=== PATIENT | female | born 1980 | race Caucasian/White ===

== ENCOUNTER 2016-07-30 20:55 | Emergency (ER) | payer MEDICAID, OTHER ==
[~2016-07-30] VITALS: Ht 167.6 cm; Wt 65.5 kg
[2016-07-30 21:03] VITALS: Ht 167.6 cm; Wt 65.5 kg
--- NOTE | 2016-07-30 22:34 | ERD ---
ER Documentation Chief Complaint Date/Time DATE: 07/30/16 TIME: 22:31 Chief Complaint Vaginal bleed for 10 days HPI 35-year-old female presents to emergency department for complaints of vaginal bleeding for 10 days. Patient states that she has been bleeding more than the usual, last menstruation was 06/26/2016. Patient is 1 para 1 0. Patient is complaining of pelvic pain, cramping pain, 4/10 scale, is accompanying the vaginal bleeding. Patient denies hematuria or dysuria. Patient denies any flank pain. Patient denies any fever or chills. Patient denies any dizziness. Patient soaks 6 pads per day. ROS All systems reviewed and are negative except as per history of present illness. Medications Home Meds Active Scripts Docusate Sodium* (Colace*) 100 Mg Capsule, 100 MG PO TID, #30 CAP Prov:KISHORE MACEDO [employer] 07/31/16 Ferrous Sulfate* (Ferrous Sulfate*) 325 Mg Tabec, 325 MG PO BID, #20 TAB Prov:KISHORE MACEDO [employer] 07/31/16 Ibuprofen* (Motrin*) 600 Mg Tab, 600 MG PO Q6H Y for PAIN AND OR ELEVATED TEMP, #30 TAB Prov:KISHORE MACEDO [employer]OCIATE 07/31/16 Reported Medications [none] Unknown Strength No Conflict Check 07/30/16 Allergies Allergies: Coded Allergies: No Known Allergy (Unverified , 07/30/16) PMhx/Soc Medical and Surgical Hx: pt denies Medical Hx, pt denies Surgical Hx Hx Alcohol Use: No Hx Substance Use: No Hx Tobacco Use: No FmHx Family History: No coronary disease, No diabetes, No other Physical Exam Vitals Vital Signs Date Time Temp Pulse Resp B/P Pulse Ox O2 Delivery O2 Flow Rate FiO2 07/30/16 21:03 98.1 88 18 132/75 98 Physical Exam GENERAL: The patient is well developed and appropriate for usual state of health, in no apparent distress. CHEST: Clear to auscultation bilaterally. There are no rales, wheezes or rhonchi. HEART: Regular rate and rhythm. No murmurs, clicks, rubs or gallops. No S3 or S4. ABDOMEN: Soft, nontender and nondistended. Good bowel sounds. No rebound or guarding. No gross peritonitis. No gross organomegaly or masses. No Mckinney sign or McBurney point tenderness. BACK: No midline or flank tenderness. EXTREMITIES: Equal pulses bilaterally. There is no peripheral clubbing, cyanosis or edema. No focal swelling or erythema. Full range of motion. Grossly neurovascularly intact. NEURO: Alert and oriented. Cranial nerves 2-12 intact. Motor strength in all 4 extremities with 5/5 strength. Sensation grossly intact. Normal speech and gait. SKIN: There is no apparent rash or petechia. The skin is warm and dry. HEMATOLOGIC AND LYMPHATIC: There is no evidence of excessive bruising or lymphedema. No gross cervical, axillary, or inguinal lymphadenopathy. Result Diagram: 07/30/16230707/30/162307 Results 24 hrs Laboratory Tests Test 07/30/16 22:40 07/30/16 23:08 Bedside Urine Blood 2+ Bedside Urine Glucose (UA) Negative Bedside Urine Ketones (LAB) Trace Bedside Urine Leukocyte Esterase (L Negative Bedside Urine Nitrite (LAB) Negative Bedside Urine Protein (LAB) Negative Bedside Urine pH (LAB) 7.0 Anion Gap 18 Basophils # 0.010^3/ul Basophils % 0.5% Beta HCG, Quantitative < 2.4mIU/ml Blood Urea Nitrogen 5mg/dl Calcium Level 9.3mg/dl Carbon Dioxide Level 23mmol/L Chloride Level 105mmol/L Creatinine 0.61mg/dl Eosinophils # 0.310^3/ul Eosinophils % 4.1% Glucose Level 101mg/dl Hematocrit 39.1% Hemoglobin 13.3g/dl Lymphocytes # 3.110^3/ul Lymphocytes % 37.9% Mean Corpuscular Hemoglobin 31.0pg Mean Corpuscular Hemoglobin Concent 34.1g/dl Mean Corpuscular Volume 91.1fl Mean Platelet Volume 7.6fl Monocytes # 0.710^3/ul Monocytes % 8.5% Neutrophils # 4.110^3/ul Neutrophils % 49.0% Nucleated Red Blood Cells # 0.010^3/ul Nucleated Red Blood Cells % 0.0/100WBC Platelet Count 47545^3/UL Potassium Level 3.5mmol/L Red Blood Count 4.3010^6/ul Red Cell Distribution Width 12.8% Sodium Level 142mmol/L White Blood Count 8.310^3/ul PROCEDURE: ULTRASOUND PELVIS CLINICAL INDICATION: 35-year-old female with vaginal bleeding. TECHNIQUE: Multiple sonographic images of the pelvis were obtained utilizing a transabdominal and endovaginal technique. The images were reviewed on a PACS workstation. COMPARISON: None. FINDINGS: The uterus is visualized and measures 7.1 x 3.8 x 4.6 cm. The endometrial echo complex is within normal limits and measures 3.0 mm. There is no evidence for free fluid. The right ovary has a normal echotexture and measures 2.3 x 0.8 x 1.3 cm. There is flow within the right ovary. The left ovary was not visualized. No adnexal masses are noted. IMPRESSION: The left ovary was not visualized otherwise unremarkable pelvic ultrasound. .Bahman Pemberton MD, Date Time Electronically viewed and signed by .Bahman Pemberton MD, MD on 07/31/2016 01:04 .M/ CC: KISHORE MACED[employer] Procedures/MDM Medical Decision Making: Patients vaginal bleeding is most likely consistent of dysfunctional uterine bleeding. Patient does not show any evidence of hypovolemic shock. Patients hemoglobin and hematocrit is stable. There is low suspicion for ectopic , ovarian torsion, patient's pain is minimal. JOSE results show . BetaHCG Quantitative is negative for . There is no signs of symptoms of dehydration. There is low suspicion for sepsis. Patient appears well and is hemodynamically stable. Disposition: Home. Condition: Stable Prescription: Ibuprofen, ferrous sulfate colace Instructions: Patient is advised to do bed rest, avoid heavy lifting, and avoid having sex until cleared by gynecology doctor. Patient is advised to follow up with gynecology doctor in 3- 4 days.. Patient is advised that is symptoms are worst, severe bleeding, dizziness, severe abdominal pain, fever, worst signs and symptoms to return to the emergency department immediately. Departure Diagnosis: Primary Impression: Vaginal bleeding Condition: Stable Patient Instructions: Dysfunctional Uterine Bleeding Additional Instructions: Patient is advised to do bed rest, avoid heavy lifting, and avoid having sex until cleared by gynecology doctor. Patient is advised to follow up with gynecology doctor in 3- 4 days.. Patient is advised that is symptoms are worst, severe bleeding, dizziness, severe abdominal pain, fever, worst signs and symptoms to return to the emergency department immediately. KISHORE MACEDO. ROSEMARY Jul 30, 2016 22:33
[2016-07-30 22:38] LABS: URINE BLOOD (Dip) POC 2+ (NEGATIVE)
[2016-07-30 23:22] LABS: BASOPHILS % 0.5 % (0.0-2.0); EOSINOPHILS # 0.3 10^3/ul (0.0-0.5); EOSINOPHILS % 4.1 % (0.0-7.0); HEMATOCRIT 39.1 % (37.0-47.0); HEMOGLOBIN 13.3 g/dl (12.0-16.0); LYMPHOCYTES # 3.1 10^3/ul (0.8-2.9); LYMPHOCYTES % 37.9 % (15.0-51.0); MEAN CORPUSCULAR HGB CONC 34.1 g/dl (32.0-37.0); MEAN CORPUSCULAR VOLUME 91.1 fl (82.0-101.0); MEAN PLATELET VOLUME 7.6 fl (7.4-10.4); MONOCYTE # 0.7 10^3/ul (0.3-0.9); MONOCYTES % 8.5 % (0.0-11.0); NEUTROPHIL # 4.1 10^3/ul (1.6-7.5); PLATELET COUNT 322 10^3/UL (140-440); RED CELL DISTRIBUTION WIDTH 12.8 % (11.5-14.5); UNCORRECTED WBC 8.3 10^3/ul (4.8-10.8); WHITE BLOOD COUNT 8.3 10^3/ul (4.8-10.8)
[2016-07-30 23:24] LABS: CONDITION 1
[2016-07-31 00:52] LABS: POTASSIUM 3.5 mmol/L (3.5-5.1)
[2016-07-31 00:55] LABS: CREATININE 0.61 mg/dl (0.44-1.00)
[2016-07-31 00:56] LABS: CALCIUM 9.3 mg/dl (8.4-10.2)
--- NOTE | 2016-07-31 01:05 | RADRPT ---
PROCEDURE: ULTRASOUND PELVIS CLINICAL INDICATION: 35-year-old female with vaginal bleeding. TECHNIQUE: Multiple sonographic images of the pelvis were obtained utilizing a transabdominal and endovaginal technique. The images were reviewed on a PACS workstation. COMPARISON: None. FINDINGS: The uterus is visualized and measures 7.1 x 3.8 x 4.6 cm. The endometrial echo complex is within nor mal limits and measures 3.0 mm. There is no evidence for free fluid. The right ovary has a normal ec hotexture and measures 2.3 x 0.8 x 1.3 cm. There is flow within the right ovary. The left ovary was not visualized. No adnexal masses are noted. IMPRESSION: The left ovary was not visualized otherwise unremarkable pelvic ultrasound. .Bahman Pemberton MD, Date Time Electronically viewed and signed by .Bahman Pemberton MD, on 07/31/2016 01:04 .[place]/
[2016-07-31] MEDS ORDERED: DOCU-144 PO (01:15)
[2016-07-31] MEDS ORDERED: IBUP-1542 PO (01:15)
[2016-07-31] MEDS ORDERED: FER325 PO (01:15)
[2016-07-31 01:30] VITALS: BP 134/83; PULSE 100; RESP 18; TEMP 98.1
== END 2016-07-31 01:30 | disposition home or self-care (01) ==
LOC: FTE 20:55
DX: N93.8 Other specified abnormal uterine and vaginal bleeding (principal); R10.2 Pelvic and perineal pain
CPT/HCPCS: 36415; 76830; 76856; 80048; 81003; 84702; 85025; Z7502